=== PATIENT | male | born 1970 | race Caucasian/White ===

== ENCOUNTER 2023-11-19 18:46 | Emergency (ER) | payer OTHER, SELFPAY ==
[2023-11-19] VITALS (15 sets, daily range): BP systolic 161–193; BP diastolic 89–106; PULSE 71–91; RESP 14–18; TEMP 36.6; O2SAT 93–98
--- NOTE | 2023-11-19 19:00 | RT.EKG_ITS ---
APPROVED REPORT Exam: Resting ECG Reason for Exam: chest pain Patient Location: E HR:77 bpm ECG Measurements Heart Rate 77 AXIS UT 147 P 40 QRSd 101 QRS -12 QT 404 T 35 QTc 456 Conclusion Sinus rhythm...normal P axis, V-rate 60- 99 Inferior infarct, old...Q >35mS, II III aVF Borderline ST elevation, anterior leads...ST >0.15mV in V1-V4
--- NOTE | 2023-11-19 19:30 | DI.CT_ITS ---
Exam(s) CT HEAD WO EXAM: CT HEAD WO CLINICAL HISTORY: extreme hypertension. TECHNIQUE: Imaging Protocol: Axial computed tomography images with coronal and sagittal reformatted images were created and reviewed COMPARISON: No exams were available for comparison FINDINGS: There are no skull fractures. There is mucosal thickening in the right maxillary sinus, not associate d with fluid level. Other paranasal sinuses as well as mastoid air cells are clear. There is no evidence of intracranial hemorrhage, mass effect, or shift of midline structures. There are no extra-axial fluid collections. The ventricles are not enlarged or shifted and there is no blo od within the ventricular system nor within the basal cisterns. IMPRESSION: No acute intracranial findings on this noninfused CT scan of the brain. Mucosal thickening noted in the right maxillary sinus. RADIATION DOSE DELIVERED: Total DLP DATA REPOSITORY: All CT scans at this facility are submitted to the National Radiology Data Registry (NRDR) Dose Index Registry (DIR) with the [employer] ([employer]). RADIATION OPTIMIZATION: All CT scans at this facility use at least one of these dose optimization te chniques: automated exposure control; mA and/or kV adjustment per patient size (includes targeted exa ms where dose is matched to clinical indication); or iterative reconstruction.
--- NOTE | 2023-11-19 19:35 | W.ED.GENAD ---
Discharge Plan Disposition Patient Disposition: Home Condition: Stable Discharge Details Clinical Impression: Hypertensive urgency Primary Care Provider: Unknown,Unknown ED Provider: Cosme Miramontes Home Meds and New Rx's Prescriptions: New amlodipine 5 mg tablet 5 mg PO DAILY 30 Days Qty: 30 0RF Continued losartan [Cozaar] 50 mg tablet 50 mg PO DAILY albuterol 90 mcg/actuation aerosol 90 mcg inhalation .other PRN valacyclovir 500 mg tablet 500 mg PO DAILY Trelegy Ellipta 100-62.5-25 mcg blister with device 1 inh inhalation DAILY Discharge Instructions Instructions: High blood pressure emergencies, Amlodipine, DASH diet Additional Instructions: You were seen in the emergency department for your hypertensive urgency, you did recent prescription transfer from lisinopril to losartan, I think you need to add a second antihypertensive agent of amlodipine to your regimen, I am starting you on 5 mg of amlodipine per day, this is a commonly used medication with losartan and they do come in a combination pill form, please take this daily, please take 50 mg of your losartan daily, monitor your blood pressures, speak with your primary care, return to emergency department for any symptomatic high blood pressures with chest pain, palpitations, visual changes, severe sudden onset headaches. Discharge Data Discharge Date/Time-TO BE ENTERED AT DEPARTURE: 11/19/23 22:01 HPI General Date/Time Provider Initiated Documentation: 11/19/23 18:48. HPI Narrative: 53 year-old male presents to ED today by POV/ambulating with a chief complaint of high blood pressures- patient is visiting the area- states has some stress from work lately with onset over the past few days. Patient was recently switched from lisinopril to losartan due to a dry cough, and has been having consistent readings high at home. Quality described as anxious- no headaches, chest pain, palpitations, dark urine, flank pain- endorses chronic floaters, no radiation to severe sudden headaches, scotoma, fever. Severity is described as unable to quantify. Palliating factors include nothing specific. Provoking factors include nothing specific. Patient not anticoagulated. Related Data Home Medications ?Medication ?Instructions ?Recorded ?Confirmed albuterol 90 mcg/actuation aerosol 90 mcg inhalation .other PRN 11/19/23 11/19/23 inhaler amlodipine 5 mg tablet 5 mg PO DAILY hypertension 30 days 11/19/23 #30 tabs fluticasone fur. 100 mcg-umeclid 1 inh inhalation DAILY 11/19/23 11/19/23 62.5 mcg-vilant 25 mcg inhalat.powder (Trelegy Ellipta) losartan 50 mg tablet (Cozaar) 50 mg PO DAILY 11/19/23 11/19/23 valacyclovir 500 mg tablet 500 mg PO DAILY 11/19/23 11/19/23 Previous Rx's ?Medication ?Instructions ?Recorded amlodipine 5 mg tablet 5 mg PO DAILY hypertension 30 days 11/19/23 #30 tabs Allergies Allergy/AdvReac Type Severity Reaction Status Date / Time No Known Allergies Allergy Verified 11/19/23 18:53 General Stated Complaint: GenMedical ADÁN: 3 Review of Systems All systems reviewed & are unremarkable except as noted in HPI and below Exam Narrative Exam Narrative: GENERAL APPEARANCE: Well-nourished, non-toxic, awake and alert, atraumatic, no acute distress. SKIN: Warm, pink, dry, intact, without rashes/lesions/ulcerations. HEAD: Normocephalic, atraumatic, normal hair distribution for gender/age. EYES: Normal conjunctiva, no exudates on lids/lashes. ENT: Nares patent, no circumoral cyanosis, no facial swelling NECK: Supple, trachea midline, painless cervical ROM. LUNGS/CHEST: Lungs CTA bilaterally, non-labored respirations, normal A/P diameter, symmetrical expansion, no chest wall deformity HEART (CV/PV): Regular rate and rhythm without murmur, no peripheral edema, no JVD. ABDOMEN: Soft, non-distended, no guarding. MSK: Normal ROM, no swelling/deformity to bilateral UEs or LEs, moving all extremities without weakness, no cyanosis, spine midline without tenderness, normal curvature. NEURO: Mental Status AAOx4 - alert to person, place, time, events No facial droop, no forehead involvement. Motor: No focal weakness - strength 5/5 in bilateral UEs and LEs, proximal and distal, symmetric. Sensory: sensation intact to light touch globally. Gait normal: patient ambulated without ataxia into ED room. PSYCH: euthymic, cooperative, pleasant, appropriate speech Course Vital Signs Vital signs: Vital Signs Pulse 91 H 11/19/23 18:59 Respiratory Rate 18 08/05/24 18:59 Blood Pressure 193/106 H 11/19/23 18:59 Pulse Oximetry 98 11/19/23 18:59 Temperature 36.6 C 11/19/23 19:04 Temperature Source Temporal Artery Scan 11/19/23 19:04 Pulse 91 H 11/19/23 18:59 Respiratory Rate 14 11/19/23 19:04 Respiratory Effort Normal 11/19/23 19:04 Respiratory Depth Normal 11/19/23 19:04 Respiratory Pattern Normal 11/19/23 19:04 Blood Pressure 193/106 H 11/19/23 18:59 Blood Pressure Position Sitting 11/19/23 18:59 Pulse Oximetry 98 11/19/23 19:04 Oxygen Delivery Method Room Air 11/19/23 19:04 Oxygen Flow Rate 0 11/19/23 18:59 Pain Level 0 11/19/23 18:59 Medical Decision Making This dictation utilizes [id number] dictation software and may contain unedited grammatical errors. 53 year-old male presents to ED today by POV/ambulating with a chief complaint of high blood pressures- patient is visiting the area- states has some stress from work lately with onset over the past few days. Patient was recently switched from lisinopril to losartan due to a dry cough, and has been having consistent readings high at home. Quality described as anxious- no headaches, chest pain, palpitations, dark urine, flank pain- endorses chronic floaters, no radiation to severe sudden headaches, scotoma, fever. Severity is described as unable to quantify. Palliating factors include nothing specific. Provoking factors include nothing specific. Patients' medical history: hypertension, asthma. Family and social history: noncontributory, has been on vacation- more ETOH than usual. Pertinent exam findings / vital signs include benign cardiopulmonary exam, neuro intact -hypertensive but less so on manual check Differential / pathologies of concern include hypertensive urgency, unlikely SANDRA, unlikely SAH. Diagnostic studies of: -BMP, UA, troponin I, CT head without contrast, EKG -BMP shows no SANDRA, normal creatinine, UA has no proteinuria or hematuria, troponin is negative with reliable onset, EKG shows no concerns and CT head is without intracranial abnormality Interventions of: -Added amlodipine 5 mg, directed to take his home dose of losartan and add 5 of amlodipine, possibly up to 5 mg twice daily of amlodipine for better blood pressure control, consult with his PCP in regards to dosing. 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 He has no concerns for any endorgan damage and symptomatic hypertension, I counseled him on the low risk scenario and started him on amlodipine, recommend he follow-up with his primary care provider for better blood pressure control with strict return criteria for sudden onset of headache, visual changes, flank pain, urinary problems or dark urine and chest pain with palpitations. Personally took a manual BP prior to discharge, it is 176/92. Patient has high anxiety- likely electronic BP cuff here had some sentivity issues. Findings not consistent with ACS, endorgan damage, hypertensive emergency. Disposition of hypertensive urgency. Patient verbalized understanding of the plan and return to ED criteria and engaged in shared decision making. Medical Records Medical records reviewed: Yes I reviewed the patient's medical records. Imaging Data Radiologic Study: Attestation: I personally reviewed and interpreted this imaging study as follows: Imaging: CT Scan Radiologist's impression: Exam: CT Head Without Contrast Exam date and time: 11/19/2023 8:13 PM Age: 53 years old Clinical indication: Other: Extreme hypertension TECHNIQUE: Imaging protocol: Computed tomography of the head without contrast. COMPARISON: No relevant prior studies available. FINDINGS: Brain: Mild volume loss. No hemorrhage. Unremarkable white matter. No mass effect. Cerebral ventricles: No ventriculomegaly. Paranasal sinuses: Polypoid mucosal thickening in the right maxillary sinus. No fluid levels. Mastoid air cells: Visualized mastoid air cells are well aerated. Bones: Unremarkable. No acute fracture. Soft tissues: Unremarkable. IMPRESSION: No acute intracranial hemorrhage. Dictated and Authenticated by: Elfego Cruz MD. Lab Data Lab results reviewed: Yes I reviewed the patient's lab results. Labs: Laboratory Tests Range/Units 11/19/23 11/19/23 19:42 20:06 Sodium (136-145) mmol/L 143 Potassium (3.5-5.1) mmol/L 3.8 Chloride (98-107) mmol/L 104 Carbon Dioxide (21.0-32.0) mmol/L 28.4 Anion Gap (3-11) mmol/L 10.6 BUN (7-18) mg/dL 17 Creatinine (0.70-1.30) mg/dL 1.0 Est GFR (CKD-EPI 2020) (mL/min/1.73m2) 89.44 Glucose (74-106) mg/dL 98 Calcium (8.5-10.1) mg/dL 8.7 Troponin I (< or =60) ng/L < 50 Urine Color (Yellow) Yellow Urine Clarity (Clear) Clear Urine pH (5-8) 6.5 Ur Specific [place] (1.005-1.025) 1.025 Urine Protein (Neg-Trace) mg/dL Negative Urine Ketones (Negative) mg/dL Negative Urine Blood (Negative) Negative Urine Nitrite (Negative) Negative Urine Bilirubin (Negative) Negative Urine Urobilinogen (Up to 0.2) mg/dL 0.2 Ur Leukocyte Esterase (Negative) Negative Urine Glucose (Negative) mg/dL Negative Quality:SDOH Health Related Social Needs: No Data to Display PFSH All Active Problems (Updated 11/19/23 @ 20:50 by FESTUS Jones) Hypertensive urgency (Acute) Social History Smoking/Tobacco Use Status: Current-Occasional Tobacco Type: cigars Smoking risk assessment performed?: Yes Alcohol Intake: current Alcohol Intake frequency: 3 or more drinks per day Alcohol type: beer, wine and hard liquor PAWSS Have you Been Recently Intoxicated or Drunk Within the Last 30 days?: Yes Have you Ever Experienced Previous Episodes of Alcohol Withdrawal?: No Have you ever Experienced Withdrawal Seizures?: No Have you ever Experienced Delirium Tremens(DT)s?: No Have you ever undergone Alcohol Rehabilitation Treatment (i.e, inpt ot outpatient treatment programs)?: No Have you ever Experienced Blackouts?: No Have you ever Combined Alcohol with other Downers within the last 90 days?: No Have you ever Combined Alcohol with any other Substance of Abuse during the last 90 days?: Yes Positive Blood Alcohol level on Presentation? [PCS.BAL]: Unable to Obtain Evidence of Increased Autonomic Activity (i.e. HR>120, tremor, sweating, agitation, nausea)?: No Result: 3
[2023-11-19] MEDS: amLODIPine 5 MG TAB PO (19:59)
[2023-11-19 20:10] LABS: Anion Gap 10.6 mmol/L (3-11); BUN 17 mg/dL (7-18); CO2 28.4 mmol/L (21.0-32.0); Calcium 8.7 mg/dL (8.5-10.1); Chloride 104 mmol/L (98-107); Estimated GFR 89.44 (mL/min/1.73m2); Glucose 98 mg/dL (74-106); Potassium 3.8 mmol/L (3.5-5.1); Sodium 143 mmol/L (136-145); Troponin I < 50 ng/L (< or =60)
[2023-11-19 20:14] LABS: Bilirubin Negative (Negative); Blood Negative (Negative); Clarity Clear (Clear); Glucose Negative (Negative); Ketones Negative (Negative); Leukocyte Esterase Negative (Negative); Nitrite Negative (Negative); Specific Gravity 1.025 (1.005-1.025); Urobilinogen 0.2 mg/dL (Up to 0.2); pH 6.5 (5-8)
--- NOTE | 2023-11-19 20:41 | DI.VRAD_ITS ---
PROCEDURE INFORMATION: Exam: CT Head Without Contrast Exam date and time: 11/19/2023 8:13 PM Age: 53 years old Clinical indication: Other: Extreme hypertension TECHNIQUE: Imaging protocol: Computed tomography of the head without contrast. COMPARISON: No relevant prior studies available. FINDINGS: Brain: Mild volume loss. No hemorrhage. Unremarkable white matter. No mass effect. Cerebral ventricles: No ventriculomegaly. Paranasal sinuses: Polypoid mucosal thickening in the right maxillary sinus. No fluid levels. Mastoid air cells: Visualized mastoid air cells are well aerated. Bones: Unremarkable. No acute fracture. Soft tissues: Unremarkable. IMPRESSION: No acute intracranial hemorrhage. Dictated and Authenticated by: Elfego Cruz MD. Ordering:LALO Aguiar MD
[2023-11-19] MEDS: Normal Saline 500 ML IV (21:03)
== END 2023-11-19 22:01 | disposition home or self-care (01) ==
PROVIDERS: Emergency Provider Physician Assistant
DX: I16.0 Hypertensive urgency (principal); I10 Essential (primary) hypertension; R07.9 Chest pain, unspecified; R94.31 Abnormal electrocardiogram [ECG] [EKG]; F17.290 Nicotine dependence, other tobacco product, uncomplicated
CPT/HCPCS: 36415; 80048; 93005; 96360; 99284; 70450; 81003; 84484; 93010